=== PATIENT | male | born 1990 | race Two or more races ===

== ENCOUNTER 2019-08-11 14:57 | Emergency (ER) | payer SELFPAY ==
[~2019-08-11] VITALS: Ht 170.2 cm; Wt 80.0 kg
[2019-08-11 15:20] VITALS: BP 122/80
[2019-08-11] MEDS ORDERED: NAPR-683 PO (15:42)
--- NOTE | 2019-08-11 15:42 | PHYS DOC ---
Past Medical History Past Medical History: No Pertinent History Past Surgical History: No Surgical History Smoking Status: Current Some Day Smoker Alcohol Use: Occasionally Adult General Chief Complaint Chief Complaint: GROIN PAIN HPI HPI Patient is a 28 year old [place] speaking male without history of medical problems who presents with complaint of groin pain. 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 Patient states he had intermittent pain in right groin but for the last 2 days he had a bulging area that getting larger with standing up and rated his pain 8/10. Patient denies abdominal pain, nausea and vomiting, fever and chills, history of the same problem. Review of Systems Review of Systems Constitutional: Denies fever or chills [] Eyes: Denies change in visual acuity, redness, or eye pain [] HENT: Denies nasal congestion or sore throat [] Respiratory: Denies cough or shortness of breath [] Cardiovascular: No additional information not addressed in HPI [] GI: Denies abdominal pain, nausea, vomiting, bloody stools or diarrhea [] : Denies dysuria or hematuria [] Musculoskeletal: Denies back pain or joint pain [] Integument: Denies rash or skin lesions [] Neurologic: Denies headache, focal weakness or sensory changes [] Endocrine: Denies polyuria or polydipsia [] All other systems were reviewed and found to be within normal limits, except as documented in this note. Physical Exam Physical Exam Constitutional: Well developed, well nourished, mild distress, non-toxic appearance. [] HENT: Normocephalic, atraumatic. Eyes: PERRLA, EOMI, conjunctiva normal, no discharge. [] Neck: Normal range of motion, no tenderness, supple, no stridor. [] Cardiovascular:Heart rate regular rhythm, no murmur [] Lungs & Thorax: Bilateral breath sounds clear to auscultation [] Abdomen: Bowel sounds normal, soft, no tenderness, no masses, no pulsatile masses. Right 5 x 5 reducible inguinal hernia without sign of strangulation Skin: Warm, dry, no erythema, no rash. [] Back: No tenderness, no CVA tenderness. [] Extremities: No tenderness, no cyanosis, no clubbing, ROM intact, no edema. [] Neurologic: Alert and oriented X 3, no focal deficits noted. [] Psychologic: Affect anxious, judgement normal, mood normal. [] Current Patient Data Vital Signs Vital Signs Date Time Temp Pulse Resp B/P (MAP) Pulse Ox O2 Delivery O2 Flow Rate FiO2 08/11/19 15:20 98.3 88 16 122/80 (94) 98 Room Air 98.3 EKG EKG [] Radiology/Procedures Radiology/Procedures [] Course & Med Decision Making Course & Med Decision Making Evaluation of patient in ER showed 28-year-old male patient with right inguinal hernia that reduced without problem. Patient was advised to follow-up with on- call surgeon for future scheduled for surgery after elective surgeries are allowed related to COVID 19. I've spoken with the patient and/or caregivers. I've explained the patient's condition, diagnosis and treatment plan based on information available to me at this time. I've answered the patient's and/or caregivers questions and addressed any concerns. The patient and/or caregivers have a good understanding the patient's diagnosis, condition and treatment plan as can be expected at this point. Vital signs have been stabilized. The patient's condition is stable for discharge from the emergency department. The patient will pursue further outpatient evaluation with her primary care provider or other designated consulting physician as outlined in the discharge instructions. Patient and/or caregivers are agreeable to this plan of care and follow-up instructions have been explained in detail. The patient and/or caregivers have received these instructions in written format and expressed understanding of these discharge instructions. The patient and her caregivers are aware that if any significant change in condition or worsening of symptoms should prompt him to immediately return to this of the closest emergency department. If an emergent department is not readily available I would encourage him to call 911. Edie Disclaimer Dragon Disclaimer This electronic medical record was generated, in whole or in part, using a voice recognition dictation system. Departure Departure Impression: Primary Impression: Reducible right inguinal hernia Disposition: TRANSFER [facility] Condition: IMPROVED Referrals: NO PCP (PCP) BRINA ALICEA MD Patient Instructions: Inguinal Hernia, Adult Additional Instructions: Follow-up with on-call surgeon for arrangement for future surgery Follow-up with your primary care physician in 3-5 days Return to ER if not getting better If the hernia coming out lay flat and try to put it back Thank you for visiting [facility]. We appreciate you trusting us with your care. If any additional problems come up don't hesitate to return to visit us. Please follow up with your primary care provider so they can plan blaire tional care if needed and know about the problem that you had. If symptoms worsen come back to the Emergency Department. Any concerning symptoms that start such as chest pain, shortness of air, weakness or numbness on one side of the body, running high fevers or any other concerning symptoms return to the ER. Scripts Naproxen (NAPROSYN) 500 Mg Tablet 1 TAB PO BID for pain, #20 TAB Prov: MARICRUZ LANDON MD 08/11/19 MARICRUZ LANDON MD Aug 11, 2019 15:42
== END 2019-08-11 15:56 | disposition home or self-care (01) ==
LOC: ER 14:57
DX: K40.90 Unilateral inguinal hernia, without obstruction or gangrene, not specified as recurrent (principal); R10.31 Right lower quadrant pain; F17.200 Nicotine dependence, unspecified, uncomplicated
CPT/HCPCS: 99285